=== PATIENT | female | born 1960 | race Caucasian/White ===

== ENCOUNTER 2018-05-29 13:42 | Emergency (ER) | payer MEDICAID, OTHER ==
[~2018-05-29] VITALS: Ht 165.1 cm; Wt 72.6 kg
[~2018-05-29 13:42] MED LIST: ALPR2TAB5 PO; AMLO5TAB7 PO; ARIP10TA9 PO; ASPI-1169 PO; BACL10TA PO; BUSP10TA3 PO; CARV6.252 PO; CHOL20004 PO; CITA40TA11 PO; CLOP75TA15 PO; DOCU100C36 PO; DONE5TAB7 PO; ESCI20TA PO; GABA600T PO; IBUP-1957 PO; LOVA20TA2 PO; MECL-102 PO; MEGE400O PO; METH5TAB6 PO; OMEG1CAP40 PO; SUCR1TAB PO; SUMA100T16 PO
[2018-05-29] MEDS ORDERED: CT SWABBABLE VALVE TRANS SET 1 EA INFUS.SET MC ONE (14:38)
[2018-05-29] MEDS ORDERED: IOHEXOL-350 100 ML VIAL IV ONE (14:38)
[2018-05-29] MEDS ORDERED: IV NS 0.9% 250 ML IV ONE (14:38)
[2018-05-29 14:42] LABS: BASOPHILS % (AUTO) 0.6 % (0.0-2.0); EOSINOPHILS % (AUTO) 1.1 % (0.0-6.0); HEMATOCRIT 37 % (33-45); HEMOGLOBIN 12.2 g/dL (11.5-14.8); LYMPHOCYTES # (AUTO) 0.9 /CMM (0.8-4.8); LYMPHOCYTES % (AUTO) 20.1 % (20.0-44.0); MEAN CORPUSCULAR HEMOGLOBIN 25 PG (26.0-33.0); MEAN CORPUSCULAR HGB CONC 33 g/dl (31.0-36.0); MEAN CORPUSCULAR VOLUME 77 fL (82-100); MONOCYTES # (AUTO) 0.4 /CMM (0.1-1.30); MONOCYTES % (AUTO) 7.9 % (2.0-12.0); NEUTROPHILS # (AUTO) 3.2 /CMM (1.8-8.9); NEUTROPHILS % (AUTO) 70.3 % (43.0-81.0); PLATELET COUNT (AUTO) 201 /CMM (150-450); RDW COEFFICIENT OF VARIATION 15.5 (11.5-15.0); RED BLOOD CELL COUNT(AUTO) 4.88 MIL/uL (4.0-5.2); WHITE BLOOD COUNT (AUTO) 4.6 K/uL (4.3-11.0)
[2018-05-29 14:51] LABS: CALCIUM, SERUM 8.8 mg/dL (8.5-10.1); CARBON DIOXIDE 28 mmol/L (21-32); CHLORIDE 105 mmol/L (98-107); CREATININE 0.8 mg/dL (0.6-1.3); GLUCOSE 90 mg/dL (74-106); POTASSIUM 3.7 mmol/L (3.5-5.1); SODIUM SERUM 139 mmol/L (136-145); UREA NITROGEN, BLOOD 8 mg/dL (7-18)
[2018-05-29 14:55] LABS: INR 1.01 (0.85-1.15)
[2018-05-29] MEDS ORDERED: IV NS 0.9% 1,000 ML BAG IV ONE (15:00)
--- NOTE | 2018-05-29 15:00 | NUR ---
pt appears comfortable in bed conversing w/spouse at bedside NO obvious distress. Discussed plan of care
[2018-05-29 15:02] LABS: TROPONIN I < 0.017 ng/mL (0.00-0.056)
[2018-05-29 15:07] LABS: CHOLESTEROL 273 mg/dL (<200); HDL CHOLESTEROL 52 mg/dL (40-60); LDL 211 mg/dL (0-99); TRIGLYCERIDES 65 mg/dL (30-150)
[2018-05-29] MEDS ORDERED: ASPIRIN 81 MG TAB.CHEW PO ONE (15:30)
[2018-05-29] MEDS ORDERED: ASPIRIN EC 81 MG TABLET.DR PO ONE (15:31)
[2018-05-29] MEDS ORDERED: GABA-532 PO (16:30)
--- NOTE | 2018-05-29 16:30 | NUR ---
NO obvious distress, No acute changes updated w/plan of care. Await admission
--- NOTE | 2018-05-29 16:40 | NUR ---
REPORT GIVEN TO FELI NEAL FOR SIA TELE [phone]
--- NOTE | 2018-05-29 16:47 | NUR ---
Patient does not wish to proceed with medical care recommended by Dr. BARRAGAN. Patient given information related to possible complications, up to and including , which could occur as a result of leaving the hospital at this time. Patient verbalizes understanding of risks involved due to leaving against medical advice. Patient has signed AMA form.
--- NOTE | 2018-05-29 16:50 | NUR ---
IV removed. Catheter intact and site benign. Pressure and 4x4 applied to site. No bleeding noted.Patient discharged to home in stable condition. Written and verbal after care instructions given. Patient verbalizes understanding of instruction.
[2018-05-29 16:51] VITALS: BP 102/81
--- NOTE | 2018-05-29 16:55 | NUR ---
pt refuses to stay for admission and opts to go against medical advice. 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 Home ambulatory AMA
== END 2018-05-29 16:54 | disposition left against medical advice (07) ==
LOC: ER 13:43
DX: I63.9 Cerebral infarction, unspecified (principal); J06.9 Acute upper respiratory infection, unspecified; I49.8 Other specified cardiac arrhythmias; F41.9 Anxiety disorder, unspecified; R53.1 Weakness; R94.02 Abnormal brain scan; Z98.890 Other specified postprocedural states; Z79.82 Long term (current) use of aspirin
CPT/HCPCS: 36415; 70450; 70496; 70498; 71045; 80048; 80061; 82962; 84484; 85025; 85730; 87081; 93005; 99291; A4606; G0480; J7030; J7050; Q9967; Z7610

== ENCOUNTER 2019-02-03 15:29 | Inpatient (IN) | payer MEDICAID, OTHER ==
[~2019-02-03] VITALS: Ht 160 cm; Wt 63.6 kg
[~2019-02-03 15:29] MED LIST changes: -ALPR2TAB5 PO; -AMLO5TAB7 PO; +AMLO5TAB9 PO; -ARIP10TA9 PO; -ASPI-1169 PO; -BUSP10TA3 PO; -CLOP75TA15 PO; -DOCU100C36 PO; +GABA-532 PO; -GABA600T PO; -IBUP-1957 PO; -MECL-102 PO; -MEGE400O PO
[2019-02-03] MEDS ORDERED: ONDANSETRON HCL/PF 4 MG/2 ML VIAL ONE (15:59)
[2019-02-03] MEDS ORDERED: MORPHINE SULFATE INJ 4 MG/ML DISP.SYRIN ONE (15:59)
[2019-02-03] MEDS ORDERED: IV NS 0.9% 500 ML BAG IV ONE (16:00)
[2019-02-03] MEDS ORDERED: ONDANSETRON HCL/PF 4 MG/2 ML VIAL IVP ONE (16:00)
[2019-02-03] MEDS ORDERED: MORPHINE SULFATE INJ 2 MG/ML DISP.SYRIN IV ONE (16:00)
[2019-02-03 16:04] LABS: BASOPHILS % (AUTO) 0.7 % (0.0-2.0); EOSINOPHILS % (AUTO) 1.6 % (0.0-6.0); HEMATOCRIT 41 % (33-45); HEMOGLOBIN 13.9 g/dL (11.5-14.8); LYMPHOCYTES # (AUTO) 0.8 /CMM (0.8-4.8); LYMPHOCYTES % (AUTO) 22.4 % (20.0-44.0); MEAN CORPUSCULAR HGB CONC 34 g/dl (31.0-36.0); MEAN CORPUSCULAR VOLUME 86 fL (82-100); MONOCYTES # (AUTO) 0.4 /CMM (0.1-1.30); MONOCYTES % (AUTO) 9.4 % (2.0-12.0); NEUTROPHILS # (AUTO) 2.5 /CMM (1.8-8.9); NEUTROPHILS % (AUTO) 65.9 % (43.0-81.0); PLATELET COUNT (AUTO) 185 /CMM (150-450); RED BLOOD CELL COUNT(AUTO) 4.76 MIL/uL (4.0-5.2); WHITE BLOOD COUNT (AUTO) 3.7 K/uL (4.3-11.0)
[2019-02-03 16:11] LABS: CALCIUM, SERUM 9.5 mg/dL (8.5-10.1); CARBON DIOXIDE 27 mmol/L (21-32); CHLORIDE 104 mmol/L (98-107); CREATININE 0.6 mg/dL (0.6-1.3); GLUCOSE 98 mg/dL (74-106); POTASSIUM 3.8 mmol/L (3.5-5.1); SODIUM SERUM 140 mmol/L (136-145); UREA NITROGEN, BLOOD 8 mg/dL (7-18)
[2019-02-03] MEDS ORDERED: SIMV40TA5 PO (16:15)
[2019-02-03] MEDS ORDERED: BUSP10TA35 PO (16:15)
[2019-02-03] MEDS ORDERED: ASPIRIN 81 MG TAB.CHEW PO ONE (17:00)
[2019-02-03] MEDS ORDERED: ASPIRIN 81 MG TAB.CHEW ONE (17:09)
[2019-02-03 20:00] VITALS: BP 110/70
[2019-02-03] MEDS: ENOXAPARIN SODIUM 40 MG/0.4 ML DISP.SYRIN SQ SCH (21:49)
[2019-02-03] MEDS: BLOOD SUGAR DIAGNOSTIC 1 EACH STRIP IN SCH (22:55)
[2019-02-04] MEDS ORDERED: BLOOD SUGAR DIAGNOSTIC 1 EACH STRIP IN SCH
[2019-02-04] MEDS ORDERED: ACETAMINOPHEN 325 MG TABLET PO PRN
[2019-02-04 00:12] VITALS: BP 115/69
[2019-02-04 04:00] VITALS: BP 112/71
[2019-02-04] MEDS ORDERED: KETOROLAC TROMETHAMINE INJ 30 MG/ML VIAL IV PRN (04:00)
[2019-02-04] MEDS: HYDROCODONE/APAP 5/325MG 1 EACH TABLET PO PRN ×3 (04:38→16:21)
[2019-02-04 06:36] LABS: APPEARANCE,URINE CLEAR (CLEAR); BILIRUBIN,URINE NEGATIVE (NEGATIVE); BLOOD, URINE NEGATIVE Ery/uL (NEGATIVE); COLOR,URINE YELLOW (YELLOW); KETONES,URINE TRACE (NEGATIVE); LEUKOCYTE ESTERASE ,URINE NEGATIVE (NEGATIVE); NITRITE, URINE NEGATIVE (NEGATIVE); PROTEIN,URINE NEGATIVE (NEGATIVE); UGLUCOSE NEGATIVE (NEGATIVE); UROBILINOGEN,URINE 0.2 EU/dL (0.2)
[2019-02-04 06:48] LABS: BACTERIA,URINE None seen /HPF (None Seen); RBC,URINE NONE SEEN /HPF (0-2); SQUAMOUS EPITHELIAL CELL,UR Few /HPF (None Seen); WBC,URINE NONE SEEN /HPF (0-3)
[2019-02-04] MEDS: BLOOD SUGAR DIAGNOSTIC 1 EACH STRIP IN SCH ×4 (07:09→22:27)
[2019-02-04 07:22] LABS: BASOPHILS % (AUTO) 0.5 % (0.0-2.0); EOSINOPHILS % (AUTO) 1.6 % (0.0-6.0); HEMATOCRIT 37 % (33-45); HEMOGLOBIN 12.8 g/dL (11.5-14.8); LYMPHOCYTES # (AUTO) 0.6 /CMM (0.8-4.8); MEAN CORPUSCULAR HGB CONC 34 g/dl (31.0-36.0); MEAN CORPUSCULAR VOLUME 86 fL (82-100); MONOCYTES # (AUTO) 0.3 /CMM (0.1-1.30); MONOCYTES % (AUTO) 9.4 % (2.0-12.0); NEUTROPHILS # (AUTO) 2.1 /CMM (1.8-8.9); NEUTROPHILS % (AUTO) 68.5 % (43.0-81.0); PLATELET COUNT (AUTO) 149 /CMM (150-450); RED BLOOD CELL COUNT(AUTO) 4.34 MIL/uL (4.0-5.2)
[2019-02-04] MEDS ORDERED: PANTOPRAZOLE 40 MG TABLET.DR PO SCH (07:30)
[2019-02-04 07:31] LABS: CALCIUM, SERUM 8.2 mg/dL (8.5-10.1); CREATININE 0.6 mg/dL (0.6-1.3); POTASSIUM 3.7 mmol/L (3.5-5.1)
[2019-02-04 08:00] VITALS: BP 105/69
[2019-02-04] MEDS: ASPIRIN EC 325 MG TABLET.DR PO SCH (08:05)
[2019-02-04 16:00] VITALS: BP 103/71
[2019-02-04 18:08] LABS: C-REACTIVE PROTEIN 0.5 mg/dL (0.0-0.9); URIC ACID 2.2 mg/dL (2.6-7.2)
[2019-02-04] MEDS: SUCRALFATE 1 G/10 ML UDC PO SCH (18:52)
[2019-02-04] MEDS: PANTOPRAZOLE 40 MG TABLET.DR PO SCH (18:52)
[2019-02-04] MEDS ORDERED: DEXAMETHASONE SOD PHOSPHATE 10 MG/ML VIAL IM ONE (19:00)
[2019-02-04] MEDS: COLCHICINE 0.6 MG TABLET PO SCH (19:25)
[2019-02-04 20:00] VITALS: BP 114/72
[2019-02-04 21:28] VITALS: BP 104/64
[2019-02-04] MEDS ORDERED: MORPHINE SULFATE INJ 2 MG/ML DISP.SYRIN IV ONE (21:30)
[2019-02-04] MEDS: ENOXAPARIN SODIUM 40 MG/0.4 ML DISP.SYRIN SQ SCH (21:41)
[2019-02-05] MEDS: SUCRALFATE 1 G/10 ML UDC PO SCH ×5 (00:18→23:07)
[2019-02-05 00:35] VITALS: BP 116/75
[2019-02-05] MEDS: HYDROCODONE/APAP 5/325MG 1 EACH TABLET PO PRN ×5 (00:36→23:08)
[2019-02-05 07:40] LABS: BASOPHILS % (AUTO) 0.1 % (0.0-2.0); HEMATOCRIT 39 % (33-45); HEMOGLOBIN 13.2 g/dL (11.5-14.8); LYMPHOCYTES # (AUTO) 0.4 /CMM (0.8-4.8); LYMPHOCYTES % (AUTO) 11.3 % (20.0-44.0); MEAN CORPUSCULAR HGB CONC 34 g/dl (31.0-36.0); MEAN CORPUSCULAR VOLUME 85 fL (82-100); MONOCYTES # (AUTO) 0.1 /CMM (0.1-1.30); MONOCYTES % (AUTO) 4.2 % (2.0-12.0); NEUTROPHILS # (AUTO) 2.8 /CMM (1.8-8.9); NEUTROPHILS % (AUTO) 84.4 % (43.0-81.0); PLATELET COUNT (AUTO) 182 /CMM (150-450); RED BLOOD CELL COUNT(AUTO) 4.59 MIL/uL (4.0-5.2); WHITE BLOOD COUNT (AUTO) 3.3 K/uL (4.3-11.0)
[2019-02-05 07:49] LABS: CALCIUM, SERUM 9.1 mg/dL (8.5-10.1); CREATININE 0.6 mg/dL (0.6-1.3); MAGNESIUM 2.1 mg/dL (1.8-2.4); PHOSPHORUS 4.4 mg/dL (2.5-4.9); POTASSIUM 4.1 mmol/L (3.5-5.1)
[2019-02-05] MEDS: BLOOD SUGAR DIAGNOSTIC 1 EACH STRIP IN SCH ×4 (07:49→21:35)
[2019-02-05 08:00] VITALS: BP 106/72
[2019-02-05] MEDS: COLCHICINE 0.6 MG TABLET PO SCH (08:05)
[2019-02-05] MEDS: PANTOPRAZOLE 40 MG TABLET.DR PO SCH ×2 (08:05→18:13)
[2019-02-05] MEDS: ASPIRIN EC 325 MG TABLET.DR PO SCH (08:05)
[2019-02-05 16:00] VITALS: BP 132/74
[2019-02-05] MEDS ORDERED: methylPREDNISolone DOSPAK(4MG) 1 PACK TAB.DS.PK PO ONE (16:30)
[2019-02-05] MEDS ORDERED: methylPREDNISolone (4MG) 4 MG TABLET (DAY #1 PC DINNER) PO ONE (17:30)
[2019-02-05] MEDS: ACYCLOVIR 800 MG TABLET PO SCH (18:13)
[2019-02-05 20:00] VITALS: BP 113/70
[2019-02-05 21:00] VITALS: BP 113/70
[2019-02-05] MEDS: ENOXAPARIN SODIUM 40 MG/0.4 ML DISP.SYRIN SQ SCH (21:34)
[2019-02-05] MEDS ORDERED: methylPREDNISolone (4MG) 4 MG TABLET (DAY1,HS) PO ONE (22:00)
[2019-02-06] MEDS: SUCRALFATE 1 G/10 ML UDC PO SCH ×4 (05:37→23:07)
[2019-02-06] MEDS: HYDROCODONE/APAP 5/325MG 1 EACH TABLET PO PRN ×5 (05:43→23:09)
[2019-02-06] MEDS: PANTOPRAZOLE 40 MG TABLET.DR PO SCH ×2 (06:33→20:21)
[2019-02-06] MEDS: BLOOD SUGAR DIAGNOSTIC 1 EACH STRIP IN SCH ×4 (06:33→22:29)
[2019-02-06 06:39] LABS: BASOPHILS % (AUTO) 0.2 % (0.0-2.0); EOSINOPHILS % (AUTO) 0.3 % (0.0-6.0); HEMATOCRIT 38 % (33-45); LYMPHOCYTES # (AUTO) 1.1 /CMM (0.8-4.8); LYMPHOCYTES % (AUTO) 18.5 % (20.0-44.0); MEAN CORPUSCULAR HGB CONC 34 g/dl (31.0-36.0); MEAN CORPUSCULAR VOLUME 85 fL (82-100); MONOCYTES # (AUTO) 0.4 /CMM (0.1-1.30); MONOCYTES % (AUTO) 6.5 % (2.0-12.0); NEUTROPHILS # (AUTO) 4.2 /CMM (1.8-8.9); NEUTROPHILS % (AUTO) 74.5 % (43.0-81.0); PLATELET COUNT (AUTO) 170 /CMM (150-450); RED BLOOD CELL COUNT(AUTO) 4.48 MIL/uL (4.0-5.2); WHITE BLOOD COUNT (AUTO) 5.7 K/uL (4.3-11.0)
[2019-02-06 06:59] LABS: CALCIUM, SERUM 8.5 mg/dL (8.5-10.1); CREATININE 0.6 mg/dL (0.6-1.3); MAGNESIUM 2.2 mg/dL (1.8-2.4); POTASSIUM 4.4 mmol/L (3.5-5.1)
[2019-02-06] MEDS ORDERED: methylPREDNISolone (4MG) 4 MG TABLET (DAY#2 ACB) PO ONE (07:30)
[2019-02-06] MEDS: COLCHICINE 0.6 MG TABLET PO SCH (08:45)
[2019-02-06 08:46] VITALS: BP 107/67
[2019-02-06] MEDS: ASPIRIN EC 325 MG TABLET.DR PO SCH (08:46)
[2019-02-06] MEDS: ACYCLOVIR 800 MG TABLET PO SCH ×2 (08:46→17:25)
[2019-02-06] MEDS ORDERED: methylPREDNISolone (4MG) 4 MG TABLET (DAY#2,PC LUNCH) PO ONE (12:30)
[2019-02-06 16:24] VITALS: BP 112/69
[2019-02-06] MEDS: GABAPENTIN 300 MG CAPSULE PO SCH (17:25)
[2019-02-06] MEDS ORDERED: methylPREDNISolone (4MG) 4 MG TABLET (DAY#2, PC DINNER) PO ONE (17:30)
[2019-02-06 20:00] VITALS: BP_SYST 124; BP_DIAS 65; BP_DIAS 69
[2019-02-06] MEDS: ENOXAPARIN SODIUM 40 MG/0.4 ML DISP.SYRIN SQ SCH (20:25)
[2019-02-06] MEDS ORDERED: methylPREDNISolone (4MG) 4 MG TABLET (DAY#2, HS) PO ONE (21:00)
[2019-02-07] MEDS: HYDROCODONE/APAP 5/325MG 1 EACH TABLET PO PRN ×3 (04:24→12:30)
[2019-02-07] MEDS: SUCRALFATE 1 G/10 ML UDC PO SCH ×3 (05:35→17:00)
[2019-02-07 06:46] LABS: BASOPHILS % (AUTO) 0.4 % (0.0-2.0); EOSINOPHILS % (AUTO) 0.5 % (0.0-6.0); HEMATOCRIT 37 % (33-45); HEMOGLOBIN 12.6 g/dL (11.5-14.8); LYMPHOCYTES % (AUTO) 22.5 % (20.0-44.0); MEAN CORPUSCULAR HGB CONC 34 g/dl (31.0-36.0); MEAN CORPUSCULAR VOLUME 84 fL (82-100); MONOCYTES # (AUTO) 0.4 /CMM (0.1-1.30); MONOCYTES % (AUTO) 9.9 % (2.0-12.0); NEUTROPHILS # (AUTO) 2.8 /CMM (1.8-8.9); NEUTROPHILS % (AUTO) 66.7 % (43.0-81.0); PLATELET COUNT (AUTO) 180 /CMM (150-450); RED BLOOD CELL COUNT(AUTO) 4.34 MIL/uL (4.0-5.2); WHITE BLOOD COUNT (AUTO) 4.2 K/uL (4.3-11.0)
[2019-02-07 07:15] LABS: CALCIUM, SERUM 8.5 mg/dL (8.5-10.1); CREATININE 0.6 mg/dL (0.6-1.3); MAGNESIUM 2.1 mg/dL (1.8-2.4); PHOSPHORUS 4.2 mg/dL (2.5-4.9); POTASSIUM 3.8 mmol/L (3.5-5.1)
[2019-02-07] MEDS ORDERED: methylPREDNISolone (4MG) 4 MG TABLET (DAY#3,ACB) PO ONE (07:30)
[2019-02-07] MEDS: BLOOD SUGAR DIAGNOSTIC 1 EACH STRIP IN SCH ×4 (07:30→22:48)
[2019-02-07 08:00] VITALS: BP 123/74
[2019-02-07 08:08] LABS: VARICELLA ZOSTER IgG 2247 index (Immune >165)
[2019-02-07] MEDS: ASPIRIN EC 325 MG TABLET.DR PO SCH (08:30)
[2019-02-07] MEDS: GABAPENTIN 300 MG CAPSULE PO SCH ×4 (08:30→17:00)
[2019-02-07] MEDS: COLCHICINE 0.6 MG TABLET PO SCH (08:30)
[2019-02-07] MEDS: ACYCLOVIR 800 MG TABLET PO SCH ×4 (08:30→21:40)
[2019-02-07] MEDS: PANTOPRAZOLE 40 MG TABLET.DR PO SCH ×2 (08:30→19:14)
[2019-02-07] MEDS ORDERED: methylPREDNISolone (4MG) 4 MG TABLET (DAY#3,PC LUNCH) PO ONE (12:30)
[2019-02-07] MEDS ORDERED: IBUPROFEN SUSP 100 MG/5 ML UDC PO PRN (13:00)
[2019-02-07] MEDS: TRAMADOL HCL 50 MG TABLET PO SCH ×2 (13:26→19:14)
[2019-02-07 15:49] VITALS: BP 135/83
[2019-02-07 16:00] VITALS: BP 135/83
[2019-02-07] MEDS ORDERED: methylPREDNISolone (4MG) 4 MG TABLET (DAY#3,PC DINNER) PO ONE (17:30)
[2019-02-07 20:00] VITALS: BP 110/67
[2019-02-07] MEDS: ENOXAPARIN SODIUM 40 MG/0.4 ML DISP.SYRIN SQ SCH (21:41)
[2019-02-07] MEDS ORDERED: methylPREDNISolone (4MG) 4 MG TABLET (DAY#3, HS) PO ONE (22:00)
[2019-02-08] MEDS: SUCRALFATE 1 G/10 ML UDC PO SCH ×5 (01:49→23:41)
[2019-02-08] MEDS: TRAMADOL HCL 50 MG TABLET PO SCH ×4 (01:50→12:28)
[2019-02-08] MEDS ORDERED: ONDANSETRON HCL/PF 4 MG/2 ML VIAL IV PRN (06:35)
[2019-02-08 06:52] VITALS: BP 112/71
[2019-02-08] MEDS: BLOOD SUGAR DIAGNOSTIC 1 EACH STRIP IN SCH ×4 (06:58→21:15)
[2019-02-08] MEDS ORDERED: methylPREDNISolone (4MG) 4 MG TABLET (DAY #4, ACB) PO ONE (07:30)
[2019-02-08] MEDS: PANTOPRAZOLE 40 MG TABLET.DR PO SCH ×2 (07:52→20:38)
[2019-02-08] MEDS: LIDOCAINE 5% (PATCH) 1 EA PATCH TP SCH ×2 (07:52→17:22)
[2019-02-08 08:00] VITALS: BP 142/81
[2019-02-08] MEDS: COLCHICINE 0.6 MG TABLET PO SCH (08:55)
[2019-02-08] MEDS: ACYCLOVIR 800 MG TABLET PO SCH ×5 (08:55→20:38)
[2019-02-08] MEDS: GABAPENTIN 300 MG CAPSULE PO SCH ×4 (08:55→16:14)
[2019-02-08] MEDS: ASPIRIN 81 MG TAB.CHEW PO SCH (09:12)
[2019-02-08] MEDS: LIDOCAINE 5% OINT 35.44 GM TUBE TP SCH ×2 (11:19→20:42)
[2019-02-08] MEDS ORDERED: methylPREDNISolone (4MG) 4 MG TABLET (DAY #4, PC LUNCH) PO ONE (12:30)
[2019-02-08 20:00] VITALS: BP 104/69
[2019-02-08] MEDS: ENOXAPARIN SODIUM 40 MG/0.4 ML DISP.SYRIN SQ SCH (20:40)
[2019-02-08] MEDS ORDERED: methylPREDNISolone (4MG) 4 MG TABLET (DAY#4 HS) PO ONE (22:00)
[2019-02-09] MEDS: SUCRALFATE 1 G/10 ML UDC PO SCH ×3 (05:33→17:36)
[2019-02-09] MEDS: HYDROCODONE/APAP 5/325MG 1 EACH TABLET PO PRN ×2 (05:42→17:43)
[2019-02-09] MEDS: BLOOD SUGAR DIAGNOSTIC 1 EACH STRIP IN SCH ×4 (06:37→22:15)
[2019-02-09] MEDS ORDERED: methylPREDNISolone (4MG) 4 MG TABLET (DAY#5, ACB) PO ONE (07:30)
[2019-02-09 07:56] LABS: CALCIUM, SERUM 9.1 mg/dL (8.5-10.1); CREATININE 0.6 mg/dL (0.6-1.3); MAGNESIUM 2.3 mg/dL (1.8-2.4); POTASSIUM 3.8 mmol/L (3.5-5.1)
[2019-02-09 08:00] VITALS: BP 106/61
[2019-02-09] MEDS: PANTOPRAZOLE 40 MG TABLET.DR PO SCH ×2 (08:15→19:57)
[2019-02-09] MEDS: ASPIRIN 81 MG TAB.CHEW PO SCH (08:15)
[2019-02-09] MEDS: GABAPENTIN 300 MG CAPSULE PO SCH ×3 (08:15→17:34)
[2019-02-09] MEDS: COLCHICINE 0.6 MG TABLET PO SCH (08:15)
[2019-02-09] MEDS: LIDOCAINE 5% (PATCH) 1 EA PATCH TP SCH ×2 (08:19→19:58)
[2019-02-09] MEDS: LIDOCAINE 5% OINT 35.44 GM TUBE TP SCH ×2 (08:19→21:59)
[2019-02-09 08:20] LABS: THYROID STIMULATING HORMONE 1.265 uIU/mL (0.358-3.74)
[2019-02-09] MEDS: ACYCLOVIR 800 MG TABLET PO SCH ×4 (08:25→21:59)
[2019-02-09 16:00] VITALS: BP 102/62
[2019-02-09 17:13] VITALS: BP 126/55
[2019-02-09 17:17] VITALS: BP 106/61
[2019-02-09 20:00] VITALS: BP 107/69
[2019-02-09 22:00] VITALS: BP 107/69
[2019-02-09] MEDS ORDERED: methylPREDNISolone (4MG) 4 MG TABLET (DAY#5,HS) PO ONE (22:00)
[2019-02-09] MEDS: ENOXAPARIN SODIUM 40 MG/0.4 ML DISP.SYRIN SQ SCH (22:01)
[2019-02-10] MEDS: SUCRALFATE 1 G/10 ML UDC PO SCH ×4 (00:13→17:06)
[2019-02-10] MEDS: BLOOD SUGAR DIAGNOSTIC 1 EACH STRIP IN SCH ×2 (07:04→12:02)
[2019-02-10] MEDS ORDERED: methylPREDNISolone (4MG) 4 MG TABLET (DAY#6,ACB) PO ONE (07:30)
[2019-02-10 08:00] VITALS: BP 96/62
[2019-02-10] MEDS: LIDOCAINE 5% OINT 35.44 GM TUBE TP SCH (08:21)
[2019-02-10] MEDS: PANTOPRAZOLE 40 MG TABLET.DR PO SCH (08:21)
[2019-02-10] MEDS: GABAPENTIN 300 MG CAPSULE PO SCH ×3 (09:03→17:06)
[2019-02-10] MEDS: LIDOCAINE 5% (PATCH) 1 EA PATCH TP SCH (09:03)
[2019-02-10] MEDS: COLCHICINE 0.6 MG TABLET PO SCH (09:03)
[2019-02-10] MEDS: ASPIRIN 81 MG TAB.CHEW PO SCH (09:03)
[2019-02-10] MEDS: ACYCLOVIR 800 MG TABLET PO SCH ×3 (09:11→17:10)
[2019-02-10] MEDS ORDERED: LIDO30AD10 TP (10:01)
[2019-02-10] MEDS ORDERED: METH4TAB17 PO (10:01)
[2019-02-10] MEDS ORDERED: ACYC800T PO (10:01)
[2019-02-10 16:00] VITALS: BP 112/70
== END 2019-02-10 17:10 | disposition home or self-care (01) | DRG 723 ==
LOC: ER 15:32 → TELE 18:26 → MED 02-04 09:19
PROVIDERS: ADMIT Student in an Organized Health Care Education/Training Program; ATTEND Internal Medicine
DX: B02.8 Zoster with other complications (principal); D70.9 Neutropenia, unspecified; F41.9 Anxiety disorder, unspecified; Z86.73 Personal history of transient ischemic attack (TIA), and cerebral infarction without residual deficits; Z87.11 Personal history of peptic ulcer disease; M79.622 Pain in left upper arm; R20.2 Paresthesia of skin; M79.2 Neuralgia and neuritis, unspecified
CPT/HCPCS: 36415; 70450-TC; 71045-TC; 72125-TC; 73030-TC; 73080-TC; 73130-TC; 78306-TC; 80048-TC; 80061-TC; 81000-TC; 82962-TC; 83735-TC; 84100-TC; 84443-TC; 84484-TC; 84550-TC; 85025-TC; 85652-TC; 85730-TC; 86140-TC; 86226; 86431-TC; 86694; 86787; 87081-TC; 92526; 92611-TC; 93307-TC; 93880-TC; 97110-TC; 97116-TC; 97530-TC; 97535-TC; A9503; G0378; J1100; J1650; J2270; J2405; J7040; J7509

== ENCOUNTER 2019-02-14 00:11 | Emergency (ER) | payer MEDICAID ==
[~2019-02-14] VITALS: Ht 157.5 cm; Wt 58.1 kg
[~2019-02-14 00:11] MED LIST changes: +ACYC800T PO; -AMLO5TAB9 PO; -BACL10TA PO; +BUSP10TA35 PO; -CARV6.252 PO; -CITA40TA11 PO; -ESCI20TA PO; +LIDO30AD10 TP; -LOVA20TA2 PO; +METH4TAB17 PO; +SIMV40TA5 PO
[2019-02-14 00:40] VITALS: BP 122/81
[2019-02-14] MEDS ORDERED: HYDROCODONE/APAP 5/325MG 1 EACH TABLET ONE (01:40)
[2019-02-14] MEDS ORDERED: HYDROCODONE/APAP 5/325MG 1 EACH TABLET PO ONE (02:00)
== END 2019-02-14 02:00 | disposition home or self-care (01) ==
LOC: ER 00:12
DX: B02.29 Other postherpetic nervous system involvement (principal); I10 Essential (primary) hypertension; Z98.890 Other specified postprocedural states; Z88.6 Allergy status to analgesic agent; Z79.899 Other long term (current) drug therapy

== ENCOUNTER 2021-05-01 23:53 | Emergency (ER) | payer MEDICAID ==
[~2021-05-01] VITALS: Ht 157.5 cm; Wt 59.0 kg
[~2021-05-01 23:53] MED LIST changes: +ACYC-108 PO; -ACYC800T PO; +SIMV-49 PO; -SIMV40TA5 PO
--- NOTE | 2021-05-02 00:05 | NUR ---
BIBS FOR C/O H/A, FEVER AND COUGH X 1 WEEK. TESTED - FOR COVID ON 04/26. HAD TYLENOL 1GR ONE HOUR DRAFTSPERSON. PT A/OX4. TOLERATING ROOM AIR WELL WITH NO SOB. UPON ARRIVAL TEMP 98.8F
--- NOTE | 2021-05-02 00:39 | NUR ---
ACLS SPECIALIST AT BEDSIDE FOR CXR
[2021-05-02] MEDS ORDERED: AZIT250T13 PO (01:24)
--- NOTE | 2021-05-02 01:38 | NUR ---
Patient discharged to home in stable condition. Written and verbal after care instructions given. Patient verbalizes understanding of instruction.
[2021-05-02 01:39] VITALS: BP 109/73
== END 2021-05-02 01:43 | disposition home or self-care (01) ==
LOC: ER 05-02 00:02
DX: J18.9 Pneumonia, unspecified organism (principal); Z20.828 Contact with and (suspected) exposure to other viral communicable diseases; I10 Essential (primary) hypertension; Z98.890 Other specified postprocedural states; Z88.6 Allergy status to analgesic agent; Z60.2 Problems related to living alone; Z79.899 Other long term (current) drug therapy
CPT/HCPCS: 71045-TC

== ENCOUNTER 2022-01-19 22:12 | Emergency (ER) | payer MEDICAID ==
[~2022-01-19] VITALS: Ht 157.5 cm; Wt 59.0 kg
[~2022-01-19 22:12] MED LIST changes: +AZIT250T13 PO
--- NOTE | 2022-01-19 23:00 | NUR ---
BIBS. FLU SYMPTOMS X 1 WEEK. R SIDE CP GOING TO BACK X 2 DAYS. HX OF PNA. PATIENT ALERT AND ORIENTED X3. AMBULATORY WITH NON LABORED BREATHING IN BED 08 AWAITING MD THOMPSON.
[2022-01-19] MEDS ORDERED: ACETAMINOPHEN ES 500 MG TABLET PO ONE (23:30)
--- NOTE | 2022-01-19 23:36 | NUR ---
flu and covid swab sent to lab
[2022-01-19] MEDS ORDERED: ACETAMINOPHEN ES 500 MG TABLET ONE (23:37)
[2022-01-19 23:51] LABS: BASOPHILS % (AUTO) 0.5 % (0.0-2.0); EOSINOPHILS % (AUTO) 2.6 % (0.0-6.0); HEMATOCRIT 39 % (33-45); HEMOGLOBIN 13.1 g/dL (11.5-14.8); LYMPHOCYTES # (AUTO) 1.4 K/uL (0.8-4.8); LYMPHOCYTES % (AUTO) 35.4 % (20.0-44.0); MEAN CORPUSCULAR HGB CONC 34 g/dl (31.0-36.0); MEAN CORPUSCULAR VOLUME 85 fL (82-100); MONOCYTES # (AUTO) 0.4 K/uL (0.1-1.30); MONOCYTES % (AUTO) 10.3 % (2.0-12.0); NEUTROPHILS % (AUTO) 51.2 % (43.0-81.0); PLATELET COUNT (AUTO) 193 K/uL (150-450); RED BLOOD CELL COUNT(AUTO) 4.51 MIL/uL (4.0-5.2)
[2022-01-19 23:58] LABS: CALCIUM, SERUM 8.6 mg/dL (8.5-10.1); CREATININE 0.6 mg/dL (0.6-1.3); POTASSIUM 4.1 mmol/L (3.5-5.1)
--- NOTE | 2022-01-20 01:23 | NUR ---
FOLLOWED UP WITH LAB REGARDING INFLUENZA RESULT
[2022-01-20 01:52] VITALS: BP 121/77
--- NOTE | 2022-01-20 01:52 | NUR ---
Patient discharged to home in stable condition. Written and verbal after care instructions given. Patient verbalizes understanding of instruction.
== END 2022-01-20 01:53 | disposition home or self-care (01) ==
LOC: ER 22:15
DX: J06.9 Acute upper respiratory infection, unspecified (principal); Z20.822 Contact with and (suspected) exposure to COVID-19; I10 Essential (primary) hypertension; Z79.899 Other long term (current) drug therapy; Z88.6 Allergy status to analgesic agent
CPT/HCPCS: 36415; 71045; 80048; 85025; 87426; 87804; 99284; C9803